=== PATIENT | male | born 1975 | race Caucasian/White ===

== ENCOUNTER 2017-09-24 18:30 | Outpatient (RCR) | payer OTHER, SELFPAY ==
--- NOTE | 2017-08-20 19:45 | HP.PTEVAL_ITS ---
Patient's Visit Information JENNY AZAR is a 41 year old M referred to Physical Therapy by Geri ESTES with a diagnosis of NECK/BACK PAIN. Date of Evaluation: 08/20/17 Physical Therapist: Alonso Varghese PT, - Visit Plan Frequency: 1x/Week Duration: 4 Weeks Plan: US ,CP/MHP,eileen ex's, manual therapy T thoracic spine,C-spine traction ,postural ex's - Subjective Subjective: This 41 y/o male presents to physical therapy with neck and back pain. Patient injuried potential moving weight felt a pull in chest muscle in Jun 2017. Continue to workout and having pain in cervical region and right arm with parathesia /tingling in forarm/shoulder.. Patient symptoms worse with extension ,sitting ,driving,lifting arms overhead.Symtoms better with cervical retraction.Seen Dr recommended PT and anti-inflammatory. Sleeping okay at night. Denies nausea/tinnutus/CHAUDHARY. 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 SOCAIL: with 4 children - Pain Right Neck Pain Intensity (Out of 10): 1 Pain Intensity Range: 10 Right Shoulder Pain Intensity (Out of 10): 3 Pain Intensity Range: 10 Comment: to forarm to wrist - Objective POSTURE: mild foward posture. PALPATION: tender paraspinals. NEURO: c/o parathesia/tingling right arm-hand,C5-6-7 2/3,mytomes intact. AROM: BUE WFL. CERVICAL ROM: flexion min loss,rotation/lateral flexion mod loss,extension min/ mod loss,retractiona and protrusion min loss - Special Tests C/S Radiculapathy - Left Upper limb tension test: Negative C/S Radiculapathy - Right Upper limb tension test: Negative C/S Radiculapathy - Left Spurlings: Negative C/S Radiculapathy - Right Spurlings: Negative C/S Radiculapathy - Left Cervical distraction: Negative C/S Radiculapathy - Right Cervical distraction: Negative C/S Radiculapathy - Left Relief test: Negative C/S Radiculapathy - Right Relief test: Negative C/S Radiculapathy - Valsalva: Negative Sharp Sara: Negative Vertebral Artery Test: Negative Alar Ligament Test: Negative Cervical Sitting: Protrusion - Mechanical Response: No effect Cervical Sitting: Protrusion - Symptoms During Testing: Increases Cervical Sitting: Protrusion - Symptoms After Testing: No worse Cervical Sitting: Retraction - Mechanical Response: No effect Cervical Sitting: Retraction - Symptoms During Testing: Increases Cervical Sitting: Retraction - Symptoms After Testing: No worse Comments:: RIGHT CERVICAL Cervical Sitting: Retraction-Extension - Mechanical Response: No effect Cerv Sitting: Retraction-Extension - Symptoms During Testing: Increases Cerv Sitting: Retraction-Extension - Symptoms After Testing: Worse Comments:: RIGHT ARM WITH PARATHESIA Cervical Sitting: Sidebend Right - Mechanical Response: No effect Cervical Sitting: Sidebend Right - Symptoms During Testing: No effect Cervical Sitting: Sidebend Right - Symptoms After Testing: No effect Cervical Sitting: Sidebend Left - Mechanical Response: No effect Cervical Sitting: Sidebend Left - Symptoms During Testing: No effect Cervical Sitting: Sidebend Left - Symptoms After Testing: No effect Cervical Sitting: Rotation Right - Mechanical Response: No effect Cervical Sitting: Rotation Right - Symptoms During Testing: No effect Cervical Sitting: Rotation Right - Symptoms After Testing: No effect Cervical Sitting: Rotation Left - Mechanical Response: No effect Cervical Sitting: Rotation Left - Symptoms During Testing: No effect Cervical Sitting: Rotation Left - Symptoms After Testing: No effect Cervical Sitting: Flexion - Mechanical Response: No effect Cervical Sitting: Flexion - Symptoms During Testing: No effect Cervical Sitting: Flexion - Symptoms After Testing: No effect Cervical Lying: Retraction - Mechanical Response: No effect Cervical Lying: Retraction - Symptoms During Testing: Decreases Cervical Lying: Retraction - Symptoms After Testing: Better Thoracic Sitting: Flexion - Symptoms During Testing: Increases Thoracic Sitting: Flexion - Symptoms After Testing: No worse Thoracic Sitting: Extension - Mechanical Response: No effect Thoracic Sitting: Extension - Symptoms During Testing: Decreases Thoracic Sitting: Extension - Symptoms After Testing: No better - Goals Goal 1:: Independant with HEP Goal Time Frame: 4-6 Weeks Goal 2:: Independant with posture for ADL'S Goal Time Frame: 4-6 Weeks Goal 3:: Decrease cervical pain and radicular symptoms by 75% or greater to improve function and job demnads. Goal Time Frame: 4-6 Weeks Goal 4:: Patient return to function of function with cervical ROM WFL. Goal Time Frame: 4-6 Weeks Goal 5:: Patient be able to perform ADLS' and jod demands to include working out. 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 with thotacic dysfunction with pain in arm ,postion with sitiing ,lifting OH with arms thus benifit from skilled PT Rehabilitation Potential: Good - Anticipated Interventions Patient/Client Instruction: Educate patient on: Condition, Plan of Care For the Purpose of:: To decrease pain, To increase ROM, To improve muscle performance and motor function, To improve ability to perform ADL's, To increase tolerance to activity/condition/position, To improve performance and independence with ADL's, To improve ability of physical actions for home/ community/work/leisure, To improve health of tissue, To decrease soft tissue restriction, To increase flexibility/ROM, To reduce risk of recurrence, To prevent re-injury Therapeutic Exercise to Include: Strength training, Body mechanics, Postural training, Flexibilty training, Eileen Exercises For the Purpose of:: To decrease pain, To increase ROM, To improve muscle performance and motor function, To increase tolerance to activity/condition/ position, To improve ability of physical actions for home/community/work/leisure , To improve health of tissue, To decrease soft tissue restriction, To increase flexibility/ROM, To improve ability to perform tasks related to life management Manual Therapy Techniques to Include: Mobilization Comment: thoracic ll-4,cervical traction For the Purpose of:: To decrease pain, To increase ROM, To improve nutrient delivery to tissue, To increase oxygenation perfusion, To improve health of tissue TENS: Yes IF ES: Yes Cryotherapy (ice pack, ice massage): Yes Thermo therapy (hot pack): Yes Ultrasound (thermal/non thermal): Yes For the Purpose of:: To decrease pain, To increase ROM, To improve nutrient delivery to tissue, To increase oxygenation perfusion, To improve health of tissue, To decrease soft tissue restriction Thank you for the opportunity to evaluate your patient. For Medicare and Medicare HMO plans, please review the plan of care and approve it. It will need to be FAXED BACK to us at [phone] for Medicare purposes. Please let me know if there are questions or concerns regarding this plan of care. Physician Signature: Date:
--- NOTE | 2017-08-20 19:47 | HP.PTEVAL_ITS ---
Patient's Visit Information JENNY AZAR is a 41 year old M referred to Physical Therapy by Geri ESTES with a diagnosis of NECK/BACK PAIN. Date of Evaluation: 08/20/17 Physical Therapist: Alonso Varghese PT, - Visit Plan Frequency: 2x /Week Duration: 4 Weeks Plan: US ,CP/MHP,eileen ex's, manual therapy T thoracic spine,C-spine traction ,postural ex's - Subjective Subjective: This 41 y/o male presents to physical therapy with neck and back pain. Patient injuried potential moving weight felt a pull in chest muscle in Jun 2017. Continue to workout and having pain in cervical region and right arm with parathesia /tingling in forarm/shoulder.. Patient symptoms worse with extension ,sitting ,driving,lifting arms overhead.Symtoms better with cervical retraction.Seen Dr recommended PT and anti-inflammatory. Sleeping okay at night. Denies nausea/tinnutus/CHAUDHARY. 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 SOCAIL: with 4 children - Pain Right Neck Pain Intensity (Out of 10): 1 Pain Intensity Range: 10 Right Shoulder Pain Intensity (Out of 10): 3 Pain Intensity Range: 10 Comment: to forarm to wrist - Objective POSTURE: mild foward posture. PALPATION: tender paraspinals. NEURO: c/o parathesia/tingling right arm-hand,C5-6-7 2/3,mytomes intact. AROM: BUE WFL. CERVICAL ROM: flexion min loss,rotation/lateral flexion mod loss,extension min/ mod loss,retraction and protrusion min loss no increase in pain with OP except retraction cervical - Special Tests C/S Radiculapathy - Left Upper limb tension test: Negative C/S Radiculapathy - Right Upper limb tension test: Negative C/S Radiculapathy - Left Spurlings: Negative C/S Radiculapathy - Right Spurlings: Negative C/S Radiculapathy - Left Cervical distraction: Negative C/S Radiculapathy - Right Cervical distraction: Negative C/S Radiculapathy - Left Relief test: Negative C/S Radiculapathy - Right Relief test: Negative C/S Radiculapathy - Valsalva: Negative Sharp Sara: Negative Vertebral Artery Test: Negative Alar Ligament Test: Negative Cervical Sitting: Protrusion - Mechanical Response: No effect Cervical Sitting: Protrusion - Symptoms During Testing: Increases Cervical Sitting: Protrusion - Symptoms After Testing: No worse Cervical Sitting: Retraction - Mechanical Response: No effect Cervical Sitting: Retraction - Symptoms During Testing: Increases Cervical Sitting: Retraction - Symptoms After Testing: No worse Comments:: RIGHT CERVICAL Cervical Sitting: Retraction-Extension - Mechanical Response: No effect Cerv Sitting: Retraction-Extension - Symptoms During Testing: Increases Cerv Sitting: Retraction-Extension - Symptoms After Testing: Worse Comments:: RIGHT ARM WITH PARATHESIA Cervical Sitting: Sidebend Right - Mechanical Response: No effect Cervical Sitting: Sidebend Right - Symptoms During Testing: No effect Cervical Sitting: Sidebend Right - Symptoms After Testing: No effect Cervical Sitting: Sidebend Left - Mechanical Response: No effect Cervical Sitting: Sidebend Left - Symptoms During Testing: No effect Cervical Sitting: Sidebend Left - Symptoms After Testing: No effect Cervical Sitting: Rotation Right - Mechanical Response: No effect Cervical Sitting: Rotation Right - Symptoms During Testing: No effect Cervical Sitting: Rotation Right - Symptoms After Testing: No effect Cervical Sitting: Rotation Left - Mechanical Response: No effect Cervical Sitting: Rotation Left - Symptoms During Testing: No effect Cervical Sitting: Rotation Left - Symptoms After Testing: No effect Cervical Sitting: Flexion - Mechanical Response: No effect Cervical Sitting: Flexion - Symptoms During Testing: No effect Cervical Sitting: Flexion - Symptoms After Testing: No effect Cervical Lying: Retraction - Mechanical Response: No effect Cervical Lying: Retraction - Symptoms During Testing: Decreases Cervical Lying: Retraction - Symptoms After Testing: Better Thoracic Sitting: Flexion - Symptoms During Testing: Increases Thoracic Sitting: Flexion - Symptoms After Testing: No worse Thoracic Sitting: Extension - Mechanical Response: No effect Thoracic Sitting: Extension - Symptoms During Testing: Decreases Thoracic Sitting: Extension - Symptoms After Testing: No better - Goals Goal 1:: Independant with HEP Goal Time Frame: 4-6 Weeks Goal 2:: Independant with posture for ADL'S Goal Time Frame: 4-6 Weeks Goal 3:: Decrease cervical pain and radicular symptoms by 75% or greater to improve function and job demnads. Goal Time Frame: 4-6 Weeks Goal 4:: Patient return to function of function with cervical ROM WFL. Goal Time Frame: 4-6 Weeks Goal 5:: Patient be able to perform ADLS' and jod demands to include working out. 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 with thotacic dysfunction with pain in arm ,postion with sitiing ,lifting OH with arms thus benifit from skilled PT Rehabilitation Potential: Good - Anticipated Interventions Patient/Client Instruction: Educate patient on: Condition, Plan of Care For the Purpose of:: To decrease pain, To increase ROM, To improve muscle performance and motor function, To improve ability to perform ADL's, To increase tolerance to activity/condition/position, To improve performance and independence with ADL's, To improve ability of physical actions for home/ community/work/leisure, To improve health of tissue, To decrease soft tissue restriction, To increase flexibility/ROM, To reduce risk of recurrence, To prevent re-injury Therapeutic Exercise to Include: Strength training, Body mechanics, Postural training, Flexibilty training, Eileen Exercises For the Purpose of:: To decrease pain, To increase ROM, To improve muscle performance and motor function, To increase tolerance to activity/condition/ position, To improve ability of physical actions for home/community/work/leisure , To improve health of tissue, To decrease soft tissue restriction, To increase flexibility/ROM, To improve ability to perform tasks related to life management Manual Therapy Techniques to Include: Mobilization Comment: thoracic ll-4,cervical traction For the Purpose of:: To decrease pain, To increase ROM, To improve nutrient delivery to tissue, To increase oxygenation perfusion, To improve health of tissue TENS: Yes IF ES: Yes Cryotherapy (ice pack, ice massage): Yes Thermo therapy (hot pack): Yes Ultrasound (thermal/non thermal): Yes For the Purpose of:: To decrease pain, To increase ROM, To improve nutrient delivery to tissue, To increase oxygenation perfusion, To improve health of tissue, To decrease soft tissue restriction Thank you for the opportunity to evaluate your patient. For Medicare and Medicare HMO plans, please review the plan of care and approve it. It will need to be FAXED BACK to us at [phone] for Medicare purposes. Please let me know if there are questions or concerns regarding this plan of care. Physician Signature: Date:
--- NOTE | 2017-09-24 19:47 | HP.PTDCSUM_ITS ---
HP - PT D/C Summary It has been my pleasure to treat JENNY AZAR under orders from DR.KFEARO Art for the diagnosis of NECK/BACK PAIN for a total of 9 visit(s) . Discharge Date: 09/24/17 Please see the following information for a summary of their discharge status. - Subjective Subjective: Still has pain in shoulder vand arm occassionally , - Pain Right Neck Pain Intensity (Out of 10): 2 Right Shoulder Pain Intensity (Out of 10): 2 - Overall Improvement % Improvement: 60 - Objective Objective/Function: POSTURE : WFL. CERVICAL ROM: flexion WFL flexion,extension min loss,/lateral flexion min loss,retraction WFL ,. MMT: BUE 4/5. + ANR UE - Goals Goal 1:: Independant with HEP Goal Progress: Goal Met Goal 2:: Independant with posture for ADL'S Goal Progress: Goal Met Goal 3:: Decrease cervical pain and radicular symptoms by 75% or greater to improve function and job demnads. Goal Progress: Progressing Goal 4:: Patient return to function of function with cervical ROM WFL. Goal Progress: Progressing Goal 5:: Patient be able to perform ADLS' and jod demands to include working out. Goal Progress: Progressing - Plan Plan: D/C TO HEP. IF SYMPTOMS PRESIST RECOMMEND MRI - D/C Information Discharge Comments: RECOMMENDCPOSSIBLE MRI If there are questions or concerns regarding this patient's physical therapy, please feel free to call me at [phone]. Thank you for the referral of this patient. Sincerely, Alonso Varghese, PT,
== END 2017-09-24 19:00 | disposition home or self-care (01) ==
LOC: PT 18:30
PROVIDERS: Family Provider Internal Medicine; PCP Internal Medicine; Visit Provider Internal Medicine
DX: M54.12 Radiculopathy, cervical region (principal); S29.011D Strain of muscle and tendon of front wall of thorax, subsequent encounter; M54.2 Cervicalgia; M54.9 Dorsalgia, unspecified
CPT/HCPCS: 97012; 97035; 97110; 97140; 97161

== ENCOUNTER → 2019-04-17 14:48 | Outpatient (CLI) | payer OTHER, SELFPAY ==
--- NOTE | 2019-04-17 14:53 | RAD_ITS ---
STUDY: X-RAY - CERVICAL SPINE REASON FOR EXAM: Male, 43 years old. Neck pain and numbness in right arm. TECHNIQUE: 5 view(s) of the cervical spine were obtained. COMPARISON: None FINDINGS: There are degenerative changes of the anterior atlantoaxial articulation. Normal odontoid process. There is mild reversal of the normal cervical lordosis. There is disc space narrowing and minimal endplate spondylosis at C5-6 and C6-7. Minimal narrowing of the neural foramina on the left at C5-C6 and C6-7 and on the right at C6-7. There is no evidence of acute fracture or loss of vertebral axial height. There is maintenance of normal alignment. The soft tissue structures are unremarkable. RAD/Cerv Spine 4 or 5 Views IMPRESSION: Degenerative changes of the cervical spine as above. Electronically Signed: Remigio Ribera DO at 22:33 EDT Tel [phone], Service support ,
== END ==
PROVIDERS: Family Provider Internal Medicine; PCP Internal Medicine; Referring Provider Internal Medicine; Visit Provider Internal Medicine
DX: M54.12 Radiculopathy, cervical region (principal)
CPT/HCPCS: 72050

== ENCOUNTER 2019-06-05 17:30 | Outpatient (RCR) | payer OTHER, SELFPAY ==
--- NOTE | 2019-05-05 19:24 | HP.PTEVAL_ITS ---
Patient's Visit Information JENNY AZAR is a 43 year old M referred to Physical Therapy by Geri Booker DO with a diagnosis of NECK PAIN AND NUMBNESS RIGHT ARM. Date of Evaluation: 05/05/19 Physical Therapist: Alonso Varghese, PT, Cert MDT, OCS - Visit Plan Frequency: 2x /Week Duration: 4 Weeks Plan: PT INTERVENTIONS US /CP ,ICTX 12-22 # X15 MIN ,VALENTINO EX'S STARTED UNLOADED CERVICAL RETRACTION,PROGRESS TO POSTURAL EX'S - Subjective Findings: This 43 y/o male presents to physical therapy with cervical radiculopathy right arm . Patient was edging driveway January noticed cervical pain with symptoms worsening in arm. Patient pain was intense which has slowly improved ,but currently patient has parathesia/tingling. Patient diddnt see Dr for couple months. Recommended PT and predisone for pain. Patient has had pain prevously 2016 which improved. Aggravating symptoms sitting,flexing cervical spine,lifting. Patient symptoms better standing ,moving,.Location pain scapular tricep with parathesia/tingling forearm to fingers. Patient symptoms affects sleeping. Patient had x-rays showed DDD. Patient pain affects ADL's ,job demands and housework tasks. Patient symptoms affects QOL. SOCIAL: . VOCATION: [employer] - Pain Bilateral Neck Pain Intensity (Out of 10): 1 Pain Intensity Range: 10 Right Scapula Pain Intensity (Out of 10): 0 Pain Intensity Range: 10 Comment: forarm tingling - Objective POSTURE: mild foward posture. PALAPTION: unremarkable. NEURO: c/o parathesia/tingling right arm ,reflexes C5-6-7 2/3. MYTOMES : intact. AROM: BUE WFL. MMT:BUE 4/5. CERCICAL ROM: flexion min loss ,retraction min loss ,extension min/mod loss,rotation/lateral flexion right mod loss pain - Special Tests C/S Radiculapathy - Left Upper limb tension test: Negative C/S Radiculapathy - Right Upper limb tension test: Negative C/S Radiculapathy - Left Spurlings: Negative C/S Radiculapathy - Right Spurlings: Positive C/S Radiculapathy - Left Cervical distraction: Negative C/S Radiculapathy - Right Cervical distraction: Negative Sharp Sara: Negative Vertebral Artery Test: Negative Alar Ligament Test: Negative Cervical Sitting: Protrusion - Mechanical Response: No effect Cervical Sitting: Protrusion - Symptoms During Testing: Increases Cervical Sitting: Protrusion - Symptoms After Testing: Worse Cervical Sitting: Retraction - Mechanical Response: No effect Cervical Sitting: Retraction - Symptoms During Testing: Increases Cervical Sitting: Retraction - Symptoms After Testing: No worse Cervical Sitting: Retraction-Extension - Mechanical Response: No effect Cerv Sitting: Retraction-Extension - Symptoms During Testing: Increases Cerv Sitting: Retraction-Extension - Symptoms After Testing: Worse Cervical Sitting: Sidebend Right - Mechanical Response: No effect Cervical Sitting: Sidebend Right - Symptoms During Testing: Increases Cervical Sitting: Sidebend Right - Symptoms After Testing: Worse Cervical Sitting: Sidebend Left - Mechanical Response: No effect Cervical Sitting: Sidebend Left - Symptoms During Testing: No effect Cervical Sitting: Sidebend Left - Symptoms After Testing: No effect Cervical Sitting: Rotation Right - Mechanical Response: No effect Cervical Sitting: Rotation Right - Symptoms During Testing: Increases Cervical Sitting: Rotation Right - Symptoms After Testing: Worse Cervical Sitting: Rotation Left - Mechanical Response: No effect Cervical Sitting: Rotation Left - Symptoms During Testing: No effect Cervical Sitting: Rotation Left - Symptoms After Testing: No effect Cervical Sitting: Flexion - Mechanical Response: No effect Cervical Sitting: Flexion - Symptoms During Testing: Abolishes Cervical Sitting: Flexion - Symptoms After Testing: Worse Cervical Lying: Retraction - Mechanical Response: No effect Cervical Lying: Retraction - Symptoms During Testing: Decreases Cervical Lying: Retraction - Symptoms After Testing: Better - Goals Goal 1:: Independant with HEP Goal Time Frame: 4-6 Weeks Goal 2:: Decrease symptosm right UR and cervical spine by 60% OR> to improve function. Goal Time Frame: 4-6 Weeks Goal 3:: Patient to improve cervical ROM for function of recovery with less pain Goal Time Frame: 4-6 Weeks Goal 4:: Pateint be able to perform ADL'S and job demnads ,sitting/driving with symptoms. Goal Time Frame: 4-6 Weeks Goal 5:: Patient to improve neck owestry score by 5 points or > to improve QOL. Goal Time Frame: 2-4 Weeks - Rehabilitation Potential Physical Therapy Diagnosis: This patient has cervical derrangement below elbow with pain with cervical flexion and movemnt to right,neuro deficits impairs ADLS' ,work ,sitting ,driving thus benifit from skilled PT. Rehabilitation Potential: Good - Anticipated Interventions Patient/Client Instruction: Educate patient on: Condition, Plan of Care For the Purpose of:: To decrease pain, To increase ROM, To improve muscle performance and motor function, To increase tolerance to activity/co ndition/position, To improve ability of physical actions for home/community/work/leisure, To improve health of tissue, To decrease soft tissue restriction, To increase flexibility/ROM, To improve ability to perform tasks related to life management Therapeutic Exercise to Include: Strength training, Postural training, Flexibilty training, Valentino Exercises For the Purpose of:: To decrease pain, To increase ROM, To improve muscle performance and motor function, To improve ability to perform ADL's, To improve ability of physical actions for home/community/work/leisure, To improve health of tissue, To decrease soft tissue restriction, To increase flexibility/ROM, To improve ability to perform tasks related to life management TENS: Yes IF ES: Yes Thermo therapy (hot pack): Yes Ultrasound (thermal/non thermal): Yes Intermittent cervical traction: Yes For the Purpose of:: To decrease pain, To increase ROM, To increase flexibility/ROM, To improve ability to perform tasks related to life management Thank you for the opportunity to evaluate your patient. For Medicare and Medicare HMO plans, please review the plan of care and approve it. It will need to be FAXED BACK to us at [phone] for Medicare purposes. For Medicare only, by signing this I certify the plan of care. Please let me know if there are questions or concerns regarding this plan of care. Physician Signature: Date:
--- NOTE | 2019-10-17 08:01 | HP.PT.NRP ---
JENNY AZAR was seen in my office for initial evaluation on 05/05/19. The following Plan of Care was established for this patient: Initial Frequency: 2x /Week Initial Duration: 4 Weeks Patient/Client Instruction: Educate patient on: Condition, Plan of Care For the Purpose of:: To decrease pain, To increase ROM, To improve muscle performance and motor function, To increase tolerance to activity/condition/position, To improve ability of physical actions for home/community/work/leisure, To improve health of tissue, To decrease soft tissue restriction, To increase flexibility/ROM, To improve ability to perform tasks related to life management Therapeutic Exercise to Include: Strength training, Postural training, Flexibilty training, Brian Exercises For the Purpose of:: To decrease pain, To increase ROM, To improve muscle performance and motor function, To improve ability to perform ADL's, To improve ability of physical actions for home/community/work/leisure, To improve health of tissue, To decrease soft tissue restriction, To increase flexibility/ROM, To improve ability to perform tasks related to life management TENS: Yes IF ES: Yes Thermo therapy (hot pack): Yes Ultrasound (thermal/non thermal): Yes Intermittent cervical traction: Yes For the Purpose of:: To decrease pain, To increase ROM, To increase flexibility/ROM, To improve ability to perform tasks related to life management This patient was last seen in our office 06/05/19. Pertinent comments regarding their Physical therapy will appear below: Patient seen for PT for NECK PAIN for ICTX ,cervical and postural ex's ,thus is d/c. At this point I will be discontinuing this patient from physical therapy. I would be happy to see this patient again in the future if found appropriate by the physician. Thank you! Alonso Varghese, PT, Cert MDT, OCS
== END 2019-06-05 19:00 | disposition home or self-care (01) ==
LOC: PT 17:30
PROVIDERS: Family Provider Internal Medicine; PCP Internal Medicine; Referring Provider Internal Medicine; Visit Provider Internal Medicine
DX: M54.2 Cervicalgia (principal); R20.0 Anesthesia of skin
CPT/HCPCS: 97012; 97035; 97110; 97161